=== PATIENT | male | born 2000 | race Caucasian/White ===

== ENCOUNTER 2021-04-29 11:05 | Emergency (ER) | payer OTHER ==
[~2021-04-29] VITALS: Ht 177.8 cm; Wt 82.4 kg
[2021-04-29] MEDS ORDERED: ACETAMINOPHEN 500 MG TAB PO ONE (11:35)
[2021-04-29 13:44] LABS: MONO SCRN NEGATIVE (NEGATIVE)
[2021-04-29 14:51] VITALS: BP 142/86
== END 2021-04-29 14:54 | disposition home or self-care (01) ==
LOC: M ED 11:05
DX: J06.9 Acute upper respiratory infection, unspecified (principal); B34.8 Other viral infections of unspecified site; R51.9 Headache, unspecified